=== PATIENT | female | born 1970 | race African-American/Black ===

== ENCOUNTER 2018-04-18 19:31 | Emergency (ER) | payer OTHER ==
[~2018-04-18] VITALS: Ht 172.7 cm; Wt 122.5 kg
[2018-04-18 20:17] LABS: BILIRUBIN,URINE NEGATIVE (NEG); CLARITY,URINE CLEAR; COLOR,URINE YELLOW; NITRITE,URINE NEGATIVE (NEG); PH,URINE 8.5; PROTEIN,URINE 100 mg/dL (NEG-TRACE)
[2018-04-18 20:23] LABS: BACTERIA,URINE MODERATE /HPF (0-FEW); RBC,URINE 0 /HPF (0-2); SQUAMOUS EPITHELIAL CELL,UR MOD /LPF; WBC,URINE OCC /HPF (0-4)
--- NOTE | 2018-04-18 20:43 | PHYS DOC ---
Past Medical History Past Medical History: Diverticulitis, Hypertension Additional Past Medical Histor: obesity Past Surgical History: Cholecystectomy Alcohol Use: None Drug Use: None Adult General Chief Complaint Chief Complaint: ABDOMINAL PAIN HPI HPI Patient is a 48 year old female with history of diverticulitis, hypertension, who presents today stating she received a call from the primary care doctor requesting her to come to the ED this evening to get a CT of the abdomen. Patient states she's had abdominal pain intermittently since of last week. She states she feels like she has to burp. She states she stopped at the doctor's office earlier today and they did labs as well as EKG and chest x-ray and was told that she needs to come to the ED for CT scan of the abdomen today. Patient denies any diarrhea. Denies any fever. Review of Systems Review of Systems Constitutional: Denies fever or chills [] Eyes: Denies change in visual acuity, redness, or eye pain [] HENT: Denies nasal congestion or sore throat [] Respiratory: Denies cough or shortness of breath [] Cardiovascular: No additional information not addressed in HPI [] GI: Reports abdominal pain, denies nausea, vomiting, bloody stools or diarrhea [ ] : Denies dysuria or hematuria [] Musculoskeletal: Denies back pain or joint pain [] Integument: Denies rash or skin lesions [] Neurologic: Denies headache, focal weakness or sensory changes [] All other systems were reviewed and found to be within normal limits, except as documented in this note. Current Medications Current Medications Current Medications Medications (Trade) Dose Ordered Sig/[facility] Start Time Stop Time Status Last Admin Dose Admin Ciprofloxacin/ Dextrose 200 ml @ 200 mls/hr 1X ONCE 04/18/18 23:00 04/18/18 23:59 04/18/18 23:13 200 MLS/HR Info (CONTRAST GIVEN -- Rx MONITORING) 1 each PRN DAILY PRN 04/18/18 22:00 04/20/18 21:59 Iohexol (Omnipaque 300 Mg/ml) 100 ml 1X ONCE 04/18/18 22:00 04/18/18 22:01 DC Metronidazole 100 ml @ 100 mls/hr 1X ONCE 04/18/18 23:00 04/18/18 23:59 04/18/18 23:13 100 MLS/HR Morphine Sulfate (Morphine Sulfate) 5 mg 1X ONCE 04/18/18 21:30 04/18/18 21:31 DC 04/18/18 21:26 5 MG Multi-Ingredient Mouthwash/Gargle (Gi Cocktail) 20 ml 1X ONCE 04/18/18 21:00 04/18/18 21:18 DC 04/18/18 21:24 20 ML Ondansetron HCl (Zofran) 4 mg 1X ONCE 04/18/18 21:00 04/18/18 21:18 DC 04/18/18 21:26 4 MG Pantoprazole Sodium (PROTONIX VIAL for IV PUSH) 40 mg 1X ONCE 04/18/18 21:00 04/18/18 21:18 DC 04/18/18 21:24 40 MG Sodium Chloride 1,000 ml @ 1,000 mls/hr 1X ONCE 04/18/18 21:00 04/18/18 21:59 DC 04/18/18 21:24 1,000 MLS/HR Allergies Allergies Allergies Coded Allergies Type Severity Reaction Last Updated Verified No Known Drug Allergies 04/18/18 No Physical Exam Physical Exam Constitutional: Well developed, well nourished, no acute distress, non-toxic appearance. [] HENT: Normocephalic, atraumatic, bilateral external ears normal, oropharynx moist, no oral exudates, nose normal. [] Eyes: PERRLA, EOMI, conjunctiva normal, no discharge. [] Neck: Normal range of motion, no tenderness, supple, no stridor. [] Cardiovascular:Heart rate regular rhythm, no murmur [] Lungs & Thorax: Bilateral breath sounds clear to auscultation [] Abdomen: Rounded abdomen. Bowel sounds normal, soft, no tenderness, no masses, no pulsatile masses. [] Skin: Warm, dry, no erythema, no rash. [] Back: No tenderness, no CVA tenderness. [] Extremities: No tenderness, no cyanosis, no clubbing, ROM intact, no edema. [] Neurologic: Alert and oriented X 3, normal motor function, normal sensory function, no focal deficits noted. [] Psychologic: Affect normal, judgement normal, mood normal. [] Current Patient Data Vital Signs Vital Signs Date Time Temp Pulse Resp B/P (MAP) Pulse Ox O2 Delivery O2 Flow Rate FiO2 04/18/18 21:26 16 98 Room Air 04/18/18 20:01 98.7 80 149/75 (99) 98.7 Lab Values Laboratory Tests Test 04/18/18 20:05 04/18/18 20:08 04/18/18 21:10 Urine Collection Type Unknown Urine Color Yellow Urine Clarity Clear Urine pH 8.5 Urine Specific [place] 1.025 Urine Protein 100 mg/dL (NEG-TRACE) Urine Glucose (UA) Negative mg/dL (NEG) Urine Ketones (Stick) Negative mg/dL (NEG) Urine Blood Negative (NEG) Urine Nitrite Negative (NEG) Urine Bilirubin Negative (NEG) Urine Urobilinogen Dipstick 1.0 mg/dL (0.2 mg/dL) Urine Leukocyte Esterase Trace (NEG) Urine RBC 0 /HPF (0-2) Urine WBC Occ /HPF (0-4) Urine Squamous Epithelial Cells Mod /LPF Urine Bacteria Moderate /HPF (0-FEW) Urine Mucus Mod /LPF Urine Opiates Screen Neg (NEG) Urine Methadone Screen Neg (NEG) Urine Barbiturates Neg (NEG) Urine Phencyclidine Screen Neg (NEG) Urine Amphetamine/Methamphetamine Neg (NEG) Urine Benzodiazepines Screen Neg (NEG) Urine Cocaine Screen Neg (NEG) Urine Cannabinoids Screen Pos (NEG) Urine Ethyl Alcohol Neg (NEG) POC Urine HCG, Qualitative Hcg negative (Negative) White Blood Count 12.6 x10^3/uL (4.0-11.0) H Red Blood Count 4.42 x10^6/uL (3.50-5.40) Hemoglobin 11.6 g/dL (12.0-15.5) L Hematocrit 36.3 % (36.0-47.0) Mean Corpuscular Volume 82 fL (79-100) Mean Corpuscular Hemoglobin 26 pg (25-35) Mean Corpuscular Hemoglobin Concent 32 g/dL (31-37) Red Cell Distribution Width 15.2 % (11.5-14.5) H Platelet Count 264 x10^3/uL (140-400) Neutrophils (%) (Auto) 46 % (31-73) Lymphocytes (%) (Auto) 45 % (24-48) Monocytes (%) (Auto) 7 % (0-9) Eosinophils (%) (Auto) 1 % (0-3) Basophils (%) (Auto) 1 % (0-3) Neutrophils # (Auto) 5.8 x10^3uL (1.8-7.7) Lymphocytes # (Auto) 5.6 x10^3/uL (1.0-4.8) H Monocytes # (Auto) 0.9 x10^3/uL (0.0-1.1) Eosinophils # (Auto) 0.1 x10^3/uL (0.0-0.7) Basophils # (Auto) 0.1 x10^3/uL (0.0-0.2) Sodium Level 142 mmol/L (136-145) Potassium Level 3.6 mmol/L (3.5-5.1) Chloride Level 105 mmol/L (98-107) Carbon Dioxide Level 31 mmol/L (21-32) Anion Gap 6 (6-14) Blood Urea Nitrogen 13 mg/dL (7-20) Creatinine 1.2 mg/dL (0.6-1.0) H Estimated GFR (Cockcroft-Gault) 57.8 BUN/Creatinine Ratio 11 (6-20) Glucose Level 106 mg/dL (70-99) H Calcium Level 8.4 mg/dL (8.5-10.1) L Total Bilirubin 0.3 mg/dL (0.2-1.0) Aspartate Amino Transferase (AST) 19 U/L (15-37) Alanine Aminotransferase (ALT) 19 U/L (14-59) Alkaline Phosphatase 131 U/L (46-116) H Total Protein 7.1 g/dL (6.4-8.2) Albumin 2.8 g/dL (3.4-5.0) L Albumin/Globulin Ratio 0.7 (1.0-1.7) L Lipase 179 U/L (73-393) Ethyl Alcohol Level < 10 mg/dL (0-10) Laboratory Tests 04/18/18 21:10 Laboratory Tests 04/18/18 21:10 EKG EKG [] Radiology/Procedures Radiology/Procedures []PROCEDURE: CT ABD PELV W/ IV CONTRST ONLY CT scan of the abdomen and pelvis with contrast 04/18/2018 CLINICAL HISTORY: Left lower quadrant abdominal pain. TECHNIQUE: After the intravenous administration of 75 cc of Omnipaque 300 only, contiguous, 5 mm axial sections were obtained through the abdomen and pelvis. One or more of the following individualized dose reduction techniques were utilized for this study: 1. Automated exposure control. 2. Adjustment of the mA and/or kV according to patient size. 3. Use of iterative reconstruction technique. FINDINGS: Images through the lung bases demonstrate minimal dependent subsegmental atelectasis bilaterally. The liver, spleen, pancreas, adrenal glands and kidneys are within normal limits. The abdominal aorta tapers normally. Surgical clips are seen within the gallbladder fossa consistent with a cholecystectomy. No free fluid or free air is seen within the abdomen. There is no evidence of bowel obstruction. The appendix is well-visualized and is within normal limits. Images through the pelvis demonstrate the urinary bladder distended with urine. An IUD is seen within the expected location of the endometrial canal of the uterus. Multiple diverticula are seen involving the sigmoid colon. Focal wall thickening of the mid sigmoid colon is seen. Increased density seen within the adjacent fat. These findings are consistent with diverticulitis. No abnormal fluid collection is seen suggest evidence of an abscess. Minimal S-shaped curvature of the thoracolumbar spine is seen. Degenerative changes are seen involving lower thoracic and lower lumbar spine and both hips. IMPRESSION: Findings are seen consistent with sigmoid diverticulitis. No abscess is seen. Electronically signed by: Milo Arzola MD (04/18/2018 10:20 PM) [facility] DICTATED and SIGNED BY: MILO ARZOLA MD DATE: 04/18/182215 Course & Med Decision Making Course & Med Decision Making Pertinent Labs and Imaging studies reviewed. (See chart for details) This is a 48-year-old female patient presenting to the ED today stating she was sent to the ED by the PCP to get a CAT scan of her abdomen. She's had abdominal pain since . CBC with a WBC of 12.6, CMP with no acute findings. Urine analysis is negative for infection. CT of the abdomen and pelvic was noted for diverticulitis. No abscess. Offered patient admission. Patient states she has to go home and take care of the mother who has bone cancer. She was given prescription for Cipro, Flagyl, [place] for pain and Zofran. 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 She was provided return precautions and discharged in stable condition. Dragon Disclaimer Dragon Disclaimer This electronic medical record was generated, in whole or in part, using a voice recognition dictation system. Departure Departure Impression: Primary Impression: Diverticulitis Disposition: 01 HOME, SELF-CARE Condition: STABLE Referrals: UNKNOWN PCP NAME (PCP) KELLY ORONA MD Follow-up with your doctor or the provided doctor in 3-7 days Patient Instructions: Diverticulitis, [id number] Additional Instructions: You were evaluated in the emergency room for abdominal pain and noted to have diverticulitis. We put you on antibiotics, ensure you complete them. Follow-up with your own doctor or the provided pulp refiner operator in the next 3-7 days. Come back to the emergency room at any point symptoms worsen Scripts Ondansetron (ZOFRAN ODT) 4 Mg Tab.rapdis 1 TAB SL Q8HRS, #15 TAB Prov: MICHAEL DOMINGO APRN 04/18/18 Hydrocodone/Apap 5-325 (NORCO 5-325 TABLET) 1 Each Tablet 1 TAB PO Q6HRS, #12 TAB Prov: MICHAEL DOMINGO APRN 18 Metronidazole (FLAGYL) 500 Mg Tablet 500 MG PO TID, #30 TAB Prov: MICHAEL DOMINGO APRN 18 Ciprofloxacin Hcl (CIPRO) 500 Mg Tablet 1 TAB PO BID, #20 TAB Prov: MICHAEL DOMINGO APRN 04/18/18 MICHAEL DOMINGO APRN Apr 18, 2018 20:43
[2018-04-18] MEDS ORDERED: IV NORMAL SALINE 1000ML BAG 1,000 ML IV ONE (21:00)
[2018-04-18] MEDS ORDERED: LIDO:MAALOX 1:1 20 ML SINGLE DOSE. SWSW ONE (21:00)
[2018-04-18] MEDS ORDERED: ONDANSETRON PF 4 MG/2 ML VIAL. IV ONE (21:00)
[2018-04-18] MEDS ORDERED: PANTOPRAZOLE IV PUSH 40 MG VIAL. IVP ONE (21:00)
[2018-04-18 21:22] LABS: BASO # 0.1 x10^3/uL (0.0-0.2); BASO % 1 % (0-3); EOS # 0.1 x10^3/uL (0.0-0.7); EOS % 1 % (0-3); HEMATOCRIT 36.3 % (36.0-47.0); HEMOGLOBIN 11.6 g/dL (12.0-15.5); LYMPH # 5.6 x10^3/uL (1.0-4.8); LYMPH % 45 % (24-48); MEAN CORPUSCULAR HEMOGLOBIN 26 pg (25-35); MEAN CORPUSCULAR HGB CONC 32 g/dL (31-37); MEAN CORPUSCULAR VOLUME 82 fL (79-100); MONO # 0.9 x10^3/uL (0.0-1.1); MONO % 7 % (0-9); NEUT # 5.8 x10^3uL (1.8-7.7); NEUT % 46 % (31-73); PLATELET COUNT 264 x10^3/uL (140-400); RED BLOOD COUNT 4.42 x10^6/uL (3.50-5.40); RED CELL DISTRIBUTION WIDTH 15.2 % (11.5-14.5); WHITE BLOOD COUNT 12.6 x10^3/uL (4.0-11.0)
[2018-04-18] MEDS ORDERED: MORPHINE SULFATE 10 MG/ML VIAL. IV ONE (21:30)
[2018-04-18 21:33] LABS: CALCIUM 8.4 mg/dL (8.5-10.1); CREATININE 1.2 mg/dL (0.6-1.0); GFR 57.8; POTASSIUM 3.6 mmol/L (3.5-5.1)
[2018-04-18 21:35] LABS: BARBITURATES NEG (NEG); BENZODIAZEPINES NEG (NEG); CANNABINOIDS POS (NEG); COCAINE NEG (NEG); METHADONE NEG (NEG); OPIATES NEG (NEG); PHENCYCLIDINE NEG (NEG)
[2018-04-18 21:36] LABS: AMPHETAMINE/METHAMPHETAMINE NEG (NEG)
[2018-04-18 21:40] LABS: ALBUMIN 2.8 g/dL (3.4-5.0); ALBUMIN/GLOBULIN RATIO 0.7 (1.0-1.7); TOTAL BILIRUBIN 0.3 mg/dL (0.2-1.0); TOTAL PROTEIN 7.1 g/dL (6.4-8.2)
[2018-04-18] MEDS ORDERED: CONTRAST GIVEN. MC PRN (22:00)
[2018-04-18] MEDS ORDERED: IOHEXOL 300 MG/ML 100ML VIAL. IV ONE (22:00)
--- NOTE | 2018-04-18 22:24 | RAD ---
CT scan of the abdomen and pelvis with contrast 04/18/2018 CLINICAL HISTORY: Left lower quadrant abdominal pain. TECHNIQUE: After the intravenous administration of 75 cc of Omnipaque 300 only, contiguous, 5 mm axial sections were obtained through the abdomen and pelvis. One or more of the following individualized dose reduction techniques were utilized for this study: 1. Automated exposure control. 2. Adjustment of the mA and/or kV according to patient size. 3. Use of iterative reconstruction technique. FINDINGS: Images through the lung bases demonstrate minimal dependent subsegmental atelectasis bilaterally. The liver, spleen, pancreas, adrenal glands and kidneys are within normal limits. The abdominal aorta tapers normally. Surgical clips are seen within the gallbladder fossa consistent with a cholecystectomy. No free fluid or free air is seen within the abdomen. There is no evidence of bowel obstruction. The appendix is well-visualized and is within normal limits. Images through the pelvis demonstrate the urinary bladder distended with urine. An IUD is seen within the expected location of the endometrial canal of the uterus. Multiple diverticula are seen involving the sigmoid colon. Focal wall thickening of the mid sigmoid colon is seen. Increased density seen within the adjacent fat. These findings are consistent with diverticulitis. No abnormal fluid collection is seen suggest evidence of an abscess. Minimal S-shaped curvature of the thoracolumbar spine is seen. Degenerative changes are seen involving lower thoracic and lower lumbar spine and both hips. IMPRESSION: Findings are seen consistent with sigmoid diverticulitis. No abscess is seen. Electronically signed by: Milo Cornell MD (04/18/2018 10:20 PM) [facility]
[2018-04-18] MEDS ORDERED: CIPROFLOXACIN 400MG PREMIX 200 ML IV ONE (23:00)
[2018-04-18] MEDS ORDERED: ONDA4TAB10 SL (23:19)
[2018-04-18] MEDS ORDERED: CIPR500T94 PO (23:19)
[2018-04-18] MEDS ORDERED: METR500T PO (23:19)
[2018-04-18] MEDS ORDERED: HYDR-971 PO (23:19)
[2018-04-19 00:03] VITALS: BP 160/90
[2018-04-19] MEDS ORDERED: MORPHINE SULFATE 10 MG/ML VIAL. IV ONE (00:30)
== END 2018-04-19 00:32 | disposition home or self-care (01) ==
LOC: ER 19:31
DX: K57.92 Diverticulitis of intestine, part unspecified, without perforation or abscess without bleeding (principal); I10 Essential (primary) hypertension; Z90.49 Acquired absence of other specified parts of digestive tract
CPT/HCPCS: 36415; 74177; 80053; 80307; 81001; 81025; 83690; 85025; 87086; 96365; 96368; 96375; 96376; 99285; C9113; G0480; J0744; J2270; J2405; J3490; J7030; Q9967; G0479

== ENCOUNTER 2018-04-29 17:19 | Inpatient (IN) | payer OTHER ==
[~2018-04-29] VITALS: Ht 172.7 cm; Wt 121.1 kg
[~2018-04-29 17:19] MED LIST: CIPR500T94 PO; HYDR-971 PO; METR500T PO; ONDA4TAB10 SL
[2018-04-29] MEDS ORDERED: CONTRAST GIVEN. MC PRN (17:45)
[2018-04-29] MEDS ORDERED: fentaNYL PF VIAL 100 MCG/2 ML VIAL IV ONE (18:00)
[2018-04-29] MEDS ORDERED: IV NORMAL SALINE 1000ML BAG 1,000 ML IV ONE (18:00)
[2018-04-29] MEDS ORDERED: ONDANSETRON PF 4 MG/2 ML VIAL. IV ONE (18:00)
[2018-04-29] MEDS ORDERED: IOHEXOL 300 MG/ML 100ML VIAL. IV ONE (18:00)
[2018-04-29 18:48] LABS: BASO # 0.1 x10^3/uL (0.0-0.2); BASO % 1 % (0-3); EOS # 0.1 x10^3/uL (0.0-0.7); EOS % 0 % (0-3); HEMATOCRIT 37.6 % (36.0-47.0); HEMOGLOBIN 12.2 g/dL (12.0-15.5); LYMPH # 4.2 x10^3/uL (1.0-4.8); LYMPH % 31 % (24-48); MEAN CORPUSCULAR HEMOGLOBIN 26 pg (25-35); MEAN CORPUSCULAR HGB CONC 32 g/dL (31-37); MEAN CORPUSCULAR VOLUME 82 fL (79-100); MONO % 8 % (0-9); NEUT # 8.2 x10^3uL (1.8-7.7); NEUT % 60 % (31-73); PLATELET COUNT 301 x10^3/uL (140-400); RED BLOOD COUNT 4.61 x10^6/uL (3.50-5.40); RED CELL DISTRIBUTION WIDTH 15.5 % (11.5-14.5); WHITE BLOOD COUNT 13.6 x10^3/uL (4.0-11.0)
[2018-04-29 18:59] LABS: CALCIUM 9.2 mg/dL (8.5-10.1); CREATININE 1.4 mg/dL (0.6-1.0); GFR 48.4; POTASSIUM 3.2 mmol/L (3.5-5.1)
[2018-04-29 19:06] LABS: ALBUMIN 3.1 g/dL (3.4-5.0); ALBUMIN/GLOBULIN RATIO 0.7 (1.0-1.7); TOTAL BILIRUBIN 0.3 mg/dL (0.2-1.0); TOTAL PROTEIN 7.8 g/dL (6.4-8.2)
--- NOTE | 2018-04-29 20:28 | RAD ---
CT SCAN OF THE ABDOMEN AND PELVIS WITH IV CONTRAST. History: Left lower quadrant pain and recent diverticulitis Comparison:None. Procedure: Contiguous axial images of the abdomen and pelvis were performed after the administration of 60 cc of Omni 300 IV contrast and without oral contrast. CT Abdomen with contrast: Findings: Liver: Unremarkable Spleen: Unremarkable Pancreas: Unremarkable Adrenal Glands: Unremarkable Kidneys: Unremarkable There is no mass or lymphadenopathy. There is no free air. There is no free fluid. There has been prior cholecystectomy. Impression: No acute findings. End Impression CT Pelvis with Contrast: Findings: The urinary bladder is collapsed and not well evaluated. There is inflammation around the proximal sigmoid colon mild diverticulosis. The appendix is normal. There is 90 which appears appropriately seated in the uterus. There is no free fluid. There is no lymphadenopathy. Impression: Findings suggest mild diverticulitis. PQRS Compliance Statement: One or more of the following individualized dose reduction techniques were utilized for this examination: 1. Automated exposure control 2. Adjustment of the mA and/or kV according to patient size 3. Use of iterative reconstruction technique Electronically signed by: John Phipps III, MD (04/29/2018 8:24 PM) [facility]
[2018-04-29] MEDS ORDERED: MORPHINE SULFATE 4 MG/ML VIAL. IV ONE (20:30)
--- NOTE | 2018-04-29 21:09 | PHYS DOC ---
Past Medical History Past Medical History: Diverticulitis, Hypertension Additional Past Medical Histor: obesity Past Surgical History: Cholecystectomy Alcohol Use: None Drug Use: None Adult General Chief Complaint Chief Complaint: ABDOMINAL PAIN HPI HPI Patient is a 48 year old female who presents with left lower quadrant pain. Patient reports she was here on April 18 and diagnosed with sigmoid diverticulitis. She did 10 days worth of Cipro and Flagyl. She reports she felt better initially, then started feeling worse about 2-3 days ago. She denies any nausea or vomiting. She has had chills. Review of Systems Review of Systems Constitutional: Chills Respiratory: Denies cough or shortness of breath [] Cardiovascular: No chest pain GI: Reports left lower quadrant abdominal pain. denies nausea, vomiting, bloody stools or diarrhea [] Integument: Denies rash or skin lesions [] Neurologic: Denies headache, focal weakness or sensory changes [] All other systems were reviewed and found to be within normal limits, except as documented in this note. Current Medications Current Medications Current Medications Medications (Trade) Dose Ordered Sig/Debi Start Time Stop Time Status Last Admin Dose Admin Fentanyl Citrate (Fentanyl 2ml Vial) 50 mcg 1X ONCE 04/29/18 18:00 04/29/18 18:01 DC 04/29/18 18:05 50 MCG Info (CONTRAST GIVEN -- Rx MONITORING) 1 each PRN DAILY PRN 04/29/18 17:45 05/01/18 17:44 Iohexol (Omnipaque 300 Mg/ml) 75 ml 1X ONCE 04/29/18 18:00 04/29/18 18:01 DC 04/29/18 19:50 75 ML Morphine Sulfate (Morphine Sulfate) 4 mg 1X ONCE 04/29/18 20:30 04/29/18 20:31 DC 04/29/18 20:39 4 MG Ondansetron HCl (Zofran) 4 mg 1X ONCE 04/29/18 18:00 04/29/18 18:01 DC 04/29/18 18:05 4 MG Sodium Chloride 1,000 ml @ 1,000 mls/hr 1X ONCE 04/29/18 18:00 04/29/18 18:59 DC 04/29/18 18:05 1,000 MLS/HR Allergies Allergies Allergies Coded Allergies Type Severity Reaction Last Updated Verified No Known Drug Allergies 04/18/18 No Physical Exam Physical Exam Constitutional: Well developed, well nourished, no acute distress, non-toxic appearance. [] HENT: Normocephalic, atraumatic Eyes: PERRLA, EOMI, conjunctiva normal, no discharge. [] Neck: Normal range of motion, no tenderness, supple, no stridor. [] Cardiovascular:Heart rate regular rhythm, no murmur [] Lungs & Thorax: Bilateral breath sounds clear to auscultation [] Abdomen: Bowel sounds normal, soft, left lower quadrant tenderness Skin: Warm, dry, no erythema, no rash. [] Neurologic: Alert and oriented X 3, normal motor function, normal sensory function, no focal deficits noted. [] Psychologic: Affect normal, judgement normal, mood normal. [] Current Patient Data Vital Signs Vital Signs Date Time Temp Pulse Resp B/P (MAP) Pulse Ox O2 Delivery O2 Flow Rate FiO2 04/29/18 20:39 16 98 Room Air 04/29/18 20:30 72 124/57 (79) 04/29/18 17:20 98.2 98.2 Lab Values Laboratory Tests Test 04/29/18 18:20 White Blood Count 13.6 x10^3/uL (4.0-11.0) H Red Blood Count 4.61 x10^6/uL (3.50-5.40) Hemoglobin 12.2 g/dL (12.0-15.5) Hematocrit 37.6 % (36.0-47.0) Mean Corpuscular Volume 82 fL (79-100) Mean Corpuscular Hemoglobin 26 pg (25-35) Mean Corpuscular Hemoglobin Concent 32 g/dL (31-37) Red Cell Distribution Width 15.5 % (11.5-14.5) H Platelet Count 301 x10^3/uL (140-400) Neutrophils (%) (Auto) 60 % (31-73) Lymphocytes (%) (Auto) 31 % (24-48) Monocytes (%) (Auto) 8 % (0-9) Eosinophils (%) (Auto) 0 % (0-3) Basophils (%) (Auto) 1 % (0-3) Neutrophils # (Auto) 8.2 x10^3uL (1.8-7.7) H Lymphocytes # (Auto) 4.2 x10^3/uL (1.0-4.8) Monocytes # (Auto) 1.0 x10^3/uL (0.0-1.1) Eosinophils # (Auto) 0.1 x10^3/uL (0.0-0.7) Basophils # (Auto) 0.1 x10^3/uL (0.0-0.2) Sodium Level 138 mmol/L (136-145) Potassium Level 3.2 mmol/L (3.5-5.1) L Chloride Level 101 mmol/L (98-107) Carbon Dioxide Level 30 mmol/L (21-32) Anion Gap 7 (6-14) Blood Urea Nitrogen 13 mg/dL (7-20) Creatinine 1.4 mg/dL (0.6-1.0) H Estimated GFR (Cockcroft-Gault) 48.4 BUN/Creatinine Ratio 9 (6-20) Glucose Level 103 mg/dL (70-99) H Calcium Level 9.2 mg/dL (8.5-10.1) Total Bilirubin 0.3 mg/dL (0.2-1.0) Aspartate Amino Transferase (AST) 15 U/L (15-37) Alanine Aminotransferase (ALT) 17 U/L (14-59) Alkaline Phosphatase 119 U/L (46-116) H Total Protein 7.8 g/dL (6.4-8.2) Albumin 3.1 g/dL (3.4-5.0) L Albumin/Globulin Ratio 0.7 (1.0-1.7) L Laboratory Tests 04/29/18 18:20 Laboratory Tests 04/29/18 18:20 EKG EKG [] Radiology/Procedures Radiology/Procedures [] Course & Med Decision Making Course & Med Decision Making Pertinent Labs and Imaging studies reviewed. (See chart for details) Discussed with Dr. Carmona, accepts patient for admission Plan: Admit Dragon Disclaimer Dragon Disclaimer This electronic medical record was generated, in whole or in part, using a voice recognition dictation system. Departure Departure Impression: Primary Impression: Diverticulitis Additional Impression: Failure of outpatient treatment Disposition: HOME, SELF-CARE Admitting Physician: Tiffany Carmona Condition: STABLE Referrals: UNKNOWN PCP NAME (PCP) Problem Qualifiers STANLEY VENTURA [employer] ASSIST[employer] Apr 29, 2018 21:09
[2018-04-29] MEDS ORDERED: PIP/TAZO PER PHARMACY MC PRN (21:15)
[2018-04-29] MEDS ORDERED: ONDANSETRON PF 4 MG/2 ML VIAL. IV PRN (21:15)
[2018-04-29] MEDS: PIPERACILLIN/TAZOBACTAM 3.375 GM in IV NORMAL SALINE 50ML 50 ML IV SCH (21:38)
[2018-04-29] MEDS: MORPHINE SULFATE 2 MG/ML VIAL. IV PRN (23:30)
[2018-04-29 23:45] VITALS: BP 136/55
[2018-04-30] MEDS ORDERED: LISI1TAB3 PO (01:08)
[2018-04-30] MEDS ORDERED: ONDA4TAB7 PO (01:08)
[2018-04-30] MEDS: MORPHINE SULFATE 2 MG/ML VIAL. IV PRN ×5 (01:40→20:31)
[2018-04-30 03:58] VITALS: BP 105/53
[2018-04-30] MEDS: PIPERACILLIN/TAZOBACTAM 3.375 GM in IV NORMAL SALINE 50ML 50 ML IV SCH ×4 (06:28→23:25)
[2018-04-30 07:50] VITALS: BP 105/65
--- NOTE | 2018-04-30 09:18 | PDOC1 ---
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 Patient reports she was here on April 18 and diagnosed with sigmoid diverticulitis. She did 10 days worth of Cipro and Flagyl. She reports she felt better initially, then started feeling worse about 2-3 days ago. She denies any nausea or vomiting. She has had chills. Review of Systems Past Medical History Cardiovascular: HTN GI: Diverticulosis, Other (diverticulitis) Psych: Anxiety Rheumatologic: Other (DJD) Endocrine: Other (obesity) Past Surgical History Past Surgical History: Cholecystectomy Family History Family History: Hypertension Social History Smoke: No ALCOHOL: rare Drugs: None Current Problem List Problem List Problems Medical Problems: (1) Diverticulitis Status: Acute (2) Failure of outpatient treatment Status: Acute Current Medications Current Medications Current Medications Medications (Trade) Dose Ordered Sig/Debi Start Time Stop Time Status Last Admin Dose Admin Fentanyl Citrate (Fentanyl 2ml Vial) 50 mcg 1X ONCE 04/29/18 18:00 04/29/18 18:01 DC 04/29/18 18:05 50 MCG Info (CONTRAST GIVEN -- Rx MONITORING) 1 each PRN DAILY PRN 04/29/18 17:45 05/01/18 17:44 Iohexol (Omnipaque 300 Mg/ml) 75 ml 1X ONCE 04/29/18 18:00 04/29/18 18:01 DC 04/29/18 19:50 75 ML Morphine Sulfate (Morphine Sulfate) 2 mg PRN Q2HR PRN 04/29/18 21:15 04/30/18 21:14 04/30/18 07:33 2 MG Ondansetron HCl (Zofran) 4 mg PRN Q8HRS PRN 04/29/18 21:15 04/30/18 21:14 Piperacillin Sod/ Tazobactam Sod (Zosyn Per Pharmacy) 1 each QID PRN 04/29/18 21:15 Piperacillin Sod/ Tazobactam Sod 3.375 gm/Sodium Chloride 50 ml @ 100 mls/hr Q6HRS 04/29/18 22:00 04/30/18 06:28 100 MLS/HR Sodium Chloride 1,000 ml @ 1,000 mls/hr 1X ONCE 04/29/18 18:00 04/29/18 18:59 DC 04/29/18 18:05 1,000 MLS/HR Allergies Allergies Allergies Coded Allergies Type Severity Reaction Last Updated Verified No Known Drug Allergies 04/18/18 No ROS Review of System CONSTITUTIONAL: No fever or chills EYES: No recent changes SKIN: No rash or itching CARDIOVASCULAR: No chest pain, syncope, palpitations, or edema RESPIRATORY: No SOB or cough GASTROINTESTINAL: No nausea, vomiting + abdominal pain NEUROLOGICAL: No headaches or weakness ENDOCRINE: No cold or heat intolerance GENITOURINARY: No urgency or frequency of urination MUSCULOSKELETAL: + back pain No joint pain LYMPHATICS: No enlarged lymph nodes PSYCHIATRIC: +anxiety no depression Physical Exam Physical Exam GEN.: No apparent distress. Alert and oriented. HEENT: Head is normocephalic, atraumatic NECK: Supple. LUNGS: Clear to auscultation. HEART: RRR, S1, S2 present. Peripheral pulses intact ABDOMEN: Soft, tender LLQ area with volunteer guarding. Positive bowel sounds. EXTREMITIES: Without any cyanosis. NEUROLOGIC: Normal speech, normal tone PSYCHIATRIC: Normal affect, normal mood. SKIN: No ulcerations Vitals Vitals Vital Signs Date Time Temp Pulse Resp B/P (MAP) Pulse Ox O2 Delivery O2 Flow Rate FiO2 04/30/18 08:00 Room Air 04/30/18 07:50 98.1 63 18 105/65 (78) 99 98.1 Labs Labs Laboratory Tests Test 04/29/18 18:20 White Blood Count 13.6 x10^3/uL (4.0-11.0) Red Blood Count 4.61 x10^6/uL (3.50-5.40) Hemoglobin 12.2 g/dL (12.0-15.5) Hematocrit 37.6 % (36.0-47.0) Mean Corpuscular Volume 82 fL (79-100) Mean Corpuscular Hemoglobin 26 pg (25-35) Mean Corpuscular Hemoglobin Concent 32 g/dL (31-37) Red Cell Distribution Width 15.5 % (11.5-14.5) Platelet Count 301 x10^3/uL (140-400) Neutrophils (%) (Auto) 60 % (31-73) Lymphocytes (%) (Auto) 31 % (24-48) Monocytes (%) (Auto) 8 % (0-9) Eosinophils (%) (Auto) 0 % (0-3) Basophils (%) (Auto) 1 % (0-3) Neutrophils # (Auto) 8.2 x10^3uL (1.8-7.7) Lymphocytes # (Auto) 4.2 x10^3/uL (1.0-4.8) Monocytes # (Auto) 1.0 x10^3/uL (0.0-1.1) Eosinophils # (Auto) 0.1 x10^3/uL (0.0-0.7) Basophils # (Auto) 0.1 x10^3/uL (0.0-0.2) Sodium Level 138 mmol/L (136-145) Potassium Level 3.2 mmol/L (3.5-5.1) Chloride Level 101 mmol/L (98-107) Carbon Dioxide Level 30 mmol/L (21-32) Anion Gap 7 (6-14) Blood Urea Nitrogen 13 mg/dL (7-20) Creatinine 1.4 mg/dL (0.6-1.0) Estimated GFR (Cockcroft-Gault) 48.4 BUN/Creatinine Ratio 9 (6-20) Glucose Level 103 mg/dL (70-99) Calcium Level 9.2 mg/dL (8.5-10.1) Total Bilirubin 0.3 mg/dL (0.2-1.0) Aspartate Amino Transf (AST/SGOT) 15 U/L (15-37) Alanine Aminotransferase (ALT/SGPT) 17 U/L (14-59) Alkaline Phosphatase 119 U/L (46-116) Total Protein 7.8 g/dL (6.4-8.2) Albumin 3.1 g/dL (3.4-5.0) Albumin/Globulin Ratio 0.7 (1.0-1.7) Laboratory Tests Test 04/29/18 18:20 White Blood Count 13.6 x10^3/uL (4.0-11.0) Red Blood Count 4.61 x10^6/uL (3.50-5.40) Hemoglobin 12.2 g/dL (12.0-15.5) Hematocrit 37.6 % (36.0-47.0) Mean Corpuscular Volume 82 fL (79-100) Mean Corpuscular Hemoglobin 26 pg (25-35) Mean Corpuscular Hemoglobin Concent 32 g/dL (31-37) Red Cell Distribution Width 15.5 % (11.5-14.5) Platelet Count 301 x10^3/uL (140-400) Neutrophils (%) (Auto) 60 % (31-73) Lymphocytes (%) (Auto) 31 % (24-48) Monocytes (%) (Auto) 8 % (0-9) Eosinophils (%) (Auto) 0 % (0-3) Basophils (%) (Auto) 1 % (0-3) Neutrophils # (Auto) 8.2 x10^3uL (1.8-7.7) Lymphocytes # (Auto) 4.2 x10^3/uL (1.0-4.8) Monocytes # (Auto) 1.0 x10^3/uL (0.0-1.1) Eosinophils # (Auto) 0.1 x10^3/uL (0.0-0.7) Basophils # (Auto) 0.1 x10^3/uL (0.0-0.2) Sodium Level 138 mmol/L (136-145) Potassium Level 3.2 mmol/L (3.5-5.1) Chloride Level 101 mmol/L (98-107) Carbon Dioxide Level 30 mmol/L (21-32) Anion Gap 7 (6-14) Blood Urea Nitrogen 13 mg/dL (7-20) Creatinine 1.4 mg/dL (0.6-1.0) Estimated GFR (Cockcroft-Gault) 48.4 BUN/Creatinine Ratio 9 (6-20) Glucose Level 103 mg/dL (70-99) Calcium Level 9.2 mg/dL (8.5-10.1) Total Bilirubin 0.3 mg/dL (0.2-1.0) Aspartate Amino Transf (AST/SGOT) 15 U/L (15-37) Alanine Aminotransferase (ALT/SGPT) 17 U/L (14-59) Alkaline Phosphatase 119 U/L (46-116) Total Protein 7.8 g/dL (6.4-8.2) Albumin 3.1 g/dL (3.4-5.0) Albumin/Globulin Ratio 0.7 (1.0-1.7) VTE Prophylaxis Ordered VTE Prophylaxis Devices: Yes VTE Pharmacological Prophylaxi: No Assessment/Plan Assessment/Plan 1-Diverticulitis failed out pt treatment with cipro and flagyl 2-GERD 3-HTN 4-anxiety admitted started Zosyn IV and pain control ALLY BURDICK MD Apr 30, 2018 09:18
[2018-04-30 11:21] VITALS: BP 135/81
--- NOTE | 2018-04-30 12:23 | PDOC2 ---
CONSULT Date of Consult Date of Consult DATE: 04/30/18 TIME: 12:20 Reason for Consult Reason for Consult: LLQ abd pain/hx diverticulitis Current Problem List Problem List Problems Medical Problems: (1) Diverticulitis Status: Acute (2) Failure of outpatient treatment Status: Acute Current Medications Current Medications Current Medications Fentanyl Citrate (Fentanyl 2ml Vial) 50 mcg 1X ONCE IV Last administered on at 18:05; Start 04/29/18 at 18:00; Stop 04/29/18 at 18:01; Status DC Sodium Chloride 1,000 ml @ 1,000 mls/hr 1X ONCE IV Last administered on at 18:05; Start 04/29/18 at 18:00; Stop 04/29/18 at 18:59; Status DC Ondansetron HCl (Zofran) 4 mg 1X ONCE IV Last administered on 04/29/18at 18:05 ; Start 04/29/18 at 18:00; Stop 04/29/18 at 18:01; Status DC Iohexol (Omnipaque 300 Mg/ml) 75 ml 1X ONCE IV Last administered on 04/29/18at 19:50; Start 04/29/18 at 18:00; Stop 04/29/18 at 18:01; Status DC Info (CONTRAST GIVEN -- Rx MONITORING) 1 each PRN DAILY PRN MC SEE COMMENTS; Start 04/29/18 at 17:45; Stop 05/01/18 at 17:44 Morphine Sulfate (Morphine Sulfate) 4 mg 1X ONCE IV Last administered on at 20:39; Start 04/29/18 at 20:30; Stop 04/29/18 at 20:31; Status DC Ondansetron HCl (Zofran) 4 mg PRN Q8HRS PRN IV NAUSEA/VOMITING; Start 04/29/18 at 21:15; Stop 04/30/18 at 21:14 Morphine Sulfate (Morphine Sulfate) 2 mg PRN Q2HR PRN IV PAIN Last administered on 04/30/18at 11:23; Start 04/29/18 at 21:15; Stop 04/30/18 at 21:14 Piperacillin Sod/ Tazobactam Sod (Zosyn Per Pharmacy) 1 each QID PRN MC SEE COMMENTS; Start 04/29/18 at 21:15 Piperacillin Sod/ Tazobactam Sod 3.375 gm/Sodium Chloride 50 ml @ 100 mls/hr Q6HRS IV Last administered on 04/30/18at 11:23; Start 04/29/18 at 22:00 Active Scripts Active Zofran Odt (Ondansetron) 4 Mg Tab.rapdis 1 Tab SL Q8HRS [place] 5-325 Tablet (Acetaminophen/Hydrocodone Bitart) 1 Each Tablet 1 Tab PO Q6HRS Flagyl (Metronidazole) 500 Mg Tablet 500 Mg PO TID Cipro (Ciprofloxacin Hcl) 500 Mg Tablet 1 Tab PO BID Reported Zofran (Ondansetron Hcl) 4 Mg Tablet 1 Tab PO Q8HRS Lisinopril-Hctz 10-12.5 Mg Tab (Lisinopril/Hydrochlorothiazide) 1 Each Tablet 1 Tab PO DAILY Allergies Allergies: Coded Allergies: No Known Drug Allergies (Unverified , 04/18/18) Vitals VITALS Vital Signs Date Time Temp Pulse Resp B/P (MAP) Pulse Ox O2 Delivery O2 Flow Rate FiO2 04/30/18 11:21 97.8 63 18 135/81 (99) 93 Room Air 97.8 Labs Labs Laboratory Tests Test 04/29/18 18:20 White Blood Count 13.6 x10^3/uL (4.0-11.0) Red Blood Count 4.61 x10^6/uL (3.50-5.40) Hemoglobin 12.2 g/dL (12.0-15.5) Hematocrit 37.6 % (36.0-47.0) Mean Corpuscular Volume 82 fL (79-100) Mean Corpuscular Hemoglobin 26 pg (25-35) Mean Corpuscular Hemoglobin Concent 32 g/dL (31-37) Red Cell Distribution Width 15.5 % (11.5-14.5) Platelet Count 301 x10^3/uL (140-400) Neutrophils (%) (Auto) 60 % (31-73) Lymphocytes (%) (Auto) 31 % (24-48) Monocytes (%) (Auto) 8 % (0-9) Eosinophils (%) (Auto) 0 % (0-3) Basophils (%) (Auto) 1 % (0-3) Neutrophils # (Auto) 8.2 x10^3uL (1.8-7.7) Lymphocytes # (Auto) 4.2 x10^3/uL (1.0-4.8) Monocytes # (Auto) 1.0 x10^3/uL (0.0-1.1) Eosinophils # (Auto) 0.1 x10^3/uL (0.0-0.7) Basophils # (Auto) 0.1 x10^3/uL (0.0-0.2) Sodium Level 138 mmol/L (136-145) Potassium Level 3.2 mmol/L (3.5-5.1) Chloride Level 101 mmol/L (98-107) Carbon Dioxide Level 30 mmol/L (21-32) Anion Gap 7 (6-14) Blood Urea Nitrogen 13 mg/dL (7-20) Creatinine 1.4 mg/dL (0.6-1.0) Estimated GFR (Cockcroft-Gault) 48.4 BUN/Creatinine Ratio 9 (6-20) Glucose Level 103 mg/dL (70-99) Calcium Level 9.2 mg/dL (8.5-10.1) Total Bilirubin 0.3 mg/dL (0.2-1.0) Aspartate Amino Transf (AST/SGOT) 15 U/L (15-37) Alanine Aminotransferase (ALT/SGPT) 17 U/L (14-59) Alkaline Phosphatase 119 U/L (46-116) Total Protein 7.8 g/dL (6.4-8.2) Albumin 3.1 g/dL (3.4-5.0) Albumin/Globulin Ratio 0.7 (1.0-1.7) Laboratory Tests Test 04/29/18 18:20 White Blood Count 13.6 x10^3/uL (4.0-11.0) Red Blood Count 4.61 x10^6/uL (3.50-5.40) Hemoglobin 12.2 g/dL (12.0-15.5) Hematocrit 37.6 % (36.0-47.0) Mean Corpuscular Volume 82 fL (79-100) Mean Corpuscular Hemoglobin 26 pg (25-35) Mean Corpuscular Hemoglobin Concent 32 g/dL (31-37) Red Cell Distribution Width 15.5 % (11.5-14.5) Platelet Count 301 x10^3/uL (140-400) Neutrophils (%) (Auto) 60 % (31-73) Lymphocytes (%) (Auto) 31 % (24-48) Monocytes (%) (Auto) 8 % (0-9) Eosinophils (%) (Auto) 0 % (0-3) Basophils (%) (Auto) 1 % (0-3) Neutrophils # (Auto) 8.2 x10^3uL (1.8-7.7) Lymphocytes # (Auto) 4.2 x10^3/uL (1.0-4.8) Monocytes # (Auto) 1.0 x10^3/uL (0.0-1.1) Eosinophils # (Auto) 0.1 x10^3/uL (0.0-0.7) Basophils # (Auto) 0.1 x10^3/uL (0.0-0.2) Sodium Level 138 mmol/L (136-145) Potassium Level 3.2 mmol/L (3.5-5.1) Chloride Level 101 mmol/L (98-107) Carbon Dioxide Level 30 mmol/L (21-32) Anion Gap 7 (6-14) Blood Urea Nitrogen 13 mg/dL (7-20) Creatinine 1.4 mg/dL (0.6-1.0) Estimated GFR (Cockcroft-Gault) 48.4 BUN/Creatinine Ratio 9 (6-20) Glucose Level 103 mg/dL (70-99) Calcium Level 9.2 mg/dL (8.5-10.1) Total Bilirubin 0.3 mg/dL (0.2-1.0) Aspartate Amino Transf (AST/SGOT) 15 U/L (15-37) Alanine Aminotransferase (ALT/SGPT) 17 U/L (14-59) Alkaline Phosphatase 119 U/L (46-116) Total Protein 7.8 g/dL (6.4-8.2) Albumin 3.1 g/dL (3.4-5.0) Albumin/Globulin Ratio 0.7 (1.0-1.7) Assessment/Plan Assessment/Plan LLQ abd pain- most likely secondary to recurrent diverticulitis. Malignancy, IBD , and/or ischemia possible as well. Plan medical therapy with antibiotics/serial CBCs interval CT scan if no improvement possible o/p colonosocpy and/or resection with chronicity of symptoms Full note dictated KELLY ORONA MD Apr 30, 2018 12:23
[2018-04-30] MEDS: ONDANSETRON ODT 4 MG TAB.RAPDIS. PO SCH ×2 (13:53→20:30)
[2018-04-30] MEDS: PANTOPRAZOLE 40 MG TABLET.DR. PO SCH (13:54)
[2018-04-30] MEDS ORDERED: POTASSIUM CHLORIDE 20 MEQ TABLET.ER. PO ONE (14:00)
[2018-04-30 15:00] VITALS: BP 107/68
[2018-04-30] MEDS: HYDROcodone/APAP 5/325MG 1 TAB TABLET PO SCH ×2 (18:18→23:25)
[2018-04-30 19:24] VITALS: BP 189/93
[2018-04-30] MEDS: LACTOBACILLUS RHAMNOSUS GG 1 CAPSULE. PO SCH (20:30)
--- NOTE | 2018-04-30 22:11 | CONS ---
DATE OF CONSULTATION: 04/30/2018 REFERRING PHYSICIAN: Dr. Arias and Dr. Carmona. REASON FOR CONSULTATION: Recurrent left lower quadrant abdominal pain, diverticulitis. HISTORY OF PRESENT ILLNESS: A 48-year-old female with past medical history significant for obesity, cholecystectomy, C-sections x 2 as well as hypertension and diverticulitis in the past, was admitted after failing outpatient antibiotics of ciprofloxacin and Flagyl for 10 days. The patient states the pain began approximately 2 weeks ago. She sought medical attention and was placed on antibiotics appropriately, but has not responded with recurrence of her discomfort. Interval CAT scan late yesterday was unrevealing for extraluminal mass or perforation of the sigmoid colon. The patient's white count presently is 13.6. Pain is fairly constant with poor appetite and weight loss of approximately 5 pounds. There is no family history of inflammatory bowel disease or colon cancer. She has undergone previous colonoscopy with continued symptoms, is appropriately frustrated with the lack of improvement. PAST MEDICAL HISTORY: Hypertension, diverticulitis, status post cholecystectomy, status post C-sections x 2. ALLERGIES: None. MEDICATIONS: Include piperacillin. She also takes lisinopril and amlodipine as an outpatient for blood pressure. SOCIAL HISTORY: She is a smoker. FAMILY HISTORY: Noncontributory for colon cancer or inflammatory bowel disease. REVIEW OF SYSTEMS: HEENT: There is no decrease in her visual acuity issues. CARDIAC: There is history of hypertension. PULMONARY: History of tobaccoism. NEUROLOGIC: No stroke, migraine, neuropathy. PSYCHIATRIC: No mood swings, depression, insomnia. GASTROINTESTINAL: See history of present illness. HEMATOLOGIC: No bleeding, bruising, coagulopathy. Persistent white count elevations are noted. ENDOCRINE: No history of heat or cold intolerance, thyroid disease or diabetes. DERMATOLOGIC: No skin rashes or pruritus. PHYSICAL EXAMINATION: GENERAL: Reveals well-nourished, well-developed female who is alert, cooperative, in mild distress. VITAL SIGNS: Temperature is 97.8, pulse 62, respirations 18, blood pressure is 135/81. HEENT: Normocephalic, atraumatic head. Pupils and extraocular muscles are not tested. Sclerae anicteric. NECK: Supple. LUNGS: Clear. CARDIOVASCULAR: Reveals an S1, S2 without S3, S4 or appreciable murmur. ABDOMEN: Reveals soft abdomen. Hyperactive bowel sounds. Left lower quadrant tenderness to deep palpation with infraumbilical incision. EXTREMITIES: Reveal no cyanosis, clubbing or edema. LABORATORY DATA: Hemoglobin is 12.2, hematocrit 37.6, white count 13.6, platelet count 301,000. Sodium 138, potassium 3.2, chloride 101, bicarbonate 30, BUN 13, creatinine 1.4, glucose 103, calcium 9.2, total bilirubin 0.3, AST of 15, ALT of 17, alkaline phosphatase of 119, total protein 7.8, albumin 3.1. CT scan of the abdomen and pelvis reveals mild inflammation in sigmoid colon, some diverticular changes. No free air, abscess or mass. IMPRESSION: Left lower quadrant abdominal pain with history of diverticular disease, most likely secondary to recurrent diverticulitis, malignancy, fistula, ischemia and/or inflammatory bowel disease are possible. Recommend fluids, antibiotics, serial blood counts, interval CT scan if there is no improvement in her pain to rule out interval development of abscess, stricture or fistula, and to consider outpatient colonoscopy and possible resection with the chronicity of her symptoms. KELLY ORONA MD DR: KUNAL/vickie JOB#: [id number] / [id number] usha Arias Dr.
[2018-04-30 23:56] VITALS: BP 158/74
[2018-05-01] MEDS ORDERED: MORPHINE SULFATE 2 MG/ML VIAL. IV PRN (03:15)
[2018-05-01 03:21] VITALS: BP 122/55
[2018-05-01 05:35] LABS: HEMATOCRIT 34.7 % (36.0-47.0); HEMOGLOBIN 11.3 g/dL (12.0-15.5); RED BLOOD COUNT 4.25 x10^6/uL (3.50-5.40); RED CELL DISTRIBUTION WIDTH 15.4 % (11.5-14.5); WHITE BLOOD COUNT 12.3 x10^3/uL (4.0-11.0)
[2018-05-01] MEDS: PIPERACILLIN/TAZOBACTAM 3.375 GM in IV NORMAL SALINE 50ML 50 ML IV SCH ×3 (05:50→16:55)
[2018-05-01] MEDS: HYDROcodone/APAP 5/325MG 1 TAB TABLET PO SCH ×3 (05:51→15:31)
[2018-05-01] MEDS: ONDANSETRON ODT 4 MG TAB.RAPDIS. PO SCH ×2 (06:00→14:00)
[2018-05-01 06:01] LABS: ALBUMIN 2.7 g/dL (3.4-5.0); ALBUMIN/GLOBULIN RATIO 0.6 (1.0-1.7); CALCIUM 8.4 mg/dL (8.5-10.1); CREATININE 1.3 mg/dL (0.6-1.0); GFR 52.7; POTASSIUM 3.6 mmol/L (3.5-5.1); TOTAL BILIRUBIN 0.3 mg/dL (0.2-1.0); TOTAL PROTEIN 7.2 g/dL (6.4-8.2)
[2018-05-01 07:48] VITALS: BP 128/75
[2018-05-01] MEDS: PANTOPRAZOLE 40 MG TABLET.DR. PO SCH (08:40)
[2018-05-01] MEDS: LACTOBACILLUS RHAMNOSUS GG 1 CAPSULE. PO SCH (08:40)
[2018-05-01 11:30] VITALS: BP 160/92
[2018-05-01] MEDS ORDERED: AMLO5TAB2 PO (11:44)
--- NOTE | 2018-05-01 13:07 | PDOC ---
PROGRESS NOTES Chief Complaint Chief Complaint feels better today need to go home , can not miss work tomorrow new job will follow with pCP pain better, tolerating diet Vitals Vitals Vital Signs Date Time Temp Pulse Resp B/P (MAP) Pulse Ox O2 Delivery O2 Flow Rate FiO2 05/01/18 11:30 98.2 68 18 160/92 (114) 99 Room Air 98.2 Physical Exam General: Alert, Oriented X3, Cooperative Heart: Regular rate Lungs: Clear Abdomen: Soft, Other (minimal tenderness now LLQ) Labs LABS Laboratory Tests Test 05/01/18 04:15 White Blood Count 12.3 x10^3/uL (4.0-11.0) Red Blood Count 4.25 x10^6/uL (3.50-5.40) Hemoglobin 11.3 g/dL (12.0-15.5) Hematocrit 34.7 % (36.0-47.0) Mean Corpuscular Volume 82 fL (79-100) Mean Corpuscular Hemoglobin 27 pg (25-35) Mean Corpuscular Hemoglobin Concent 33 g/dL (31-37) Red Cell Distribution Width 15.4 % (11.5-14.5) Platelet Count 278 x10^3/uL (140-400) Sodium Level 139 mmol/L (136-145) Potassium Level 3.6 mmol/L (3.5-5.1) Chloride Level 103 mmol/L (98-107) Carbon Dioxide Level 29 mmol/L (21-32) Anion Gap 7 (6-14) Blood Urea Nitrogen 11 mg/dL (7-20) Creatinine 1.3 mg/dL (0.6-1.0) Estimated GFR (Cockcroft-Gault) 52.7 BUN/Creatinine Ratio 8 (6-20) Glucose Level 102 mg/dL (70-99) Calcium Level 8.4 mg/dL (8.5-10.1) Total Bilirubin 0.3 mg/dL (0.2-1.0) Aspartate Amino Transf (AST/SGOT) 27 U/L (15-37) Alanine Aminotransferase (ALT/SGPT) 30 U/L (14-59) Alkaline Phosphatase 112 U/L (46-116) Total Protein 7.2 g/dL (6.4-8.2) Albumin 2.7 g/dL (3.4-5.0) Albumin/Globulin Ratio 0.6 (1.0-1.7) Assessment and Plan Assessmemt and Plan Problems Medical Problems: (1) Diverticulitis Status: Acute (2) Failure of outpatient treatment Status: Acute Comment Review of Relevant I have reviewed the following items antonio (where applicable) has been applied. Labs Laboratory Tests Test 04/29/18 18:20 05/01/18 04:15 White Blood Count 13.6 x10^3/uL (4.0-11.0) 12.3 x10^3/uL (4.0-11.0) Red Blood Count 4.61 x10^6/uL (3.50-5.40) 4.25 x10^6/uL (3.50-5.40) Hemoglobin 12.2 g/dL (12.0-15.5) 11.3 g/dL (12.0-15.5) Hematocrit 37.6 % (36.0-47.0) 34.7 % (36.0-47.0) Mean Corpuscular Volume 82 fL (79-100) 82 fL (79-100) Mean Corpuscular Hemoglobin 26 pg (25-35) 27 pg (25-35) Mean Corpuscular Hemoglobin Concent 32 g/dL (31-37) 33 g/dL (31-37) Red Cell Distribution Width 15.5 % (11.5-14.5) 15.4 % (11.5-14.5) Platelet Count 301 x10^3/uL (140-400) 278 x10^3/uL (140-400) Neutrophils (%) (Auto) 60 % (31-73) Lymphocytes (%) (Auto) 31 % (24-48) Monocytes (%) (Auto) 8 % (0-9) Eosinophils (%) (Auto) 0 % (0-3) Basophils (%) (Auto) 1 % (0-3) Neutrophils # (Auto) 8.2 x10^3uL (1.8-7.7) Lymphocytes # (Auto) 4.2 x10^3/uL (1.0-4.8) Monocytes # (Auto) 1.0 x10^3/uL (0.0-1.1) Eosinophils # (Auto) 0.1 x10^3/uL (0.0-0.7) Basophils # (Auto) 0.1 x10^3/uL (0.0-0.2) Sodium Level 138 mmol/L (136-145) 139 mmol/L (136-145) Potassium Level 3.2 mmol/L (3.5-5.1) 3.6 mmol/L (3.5-5.1) Chloride Level 101 mmol/L (98-107) 103 mmol/L (98-107) Carbon Dioxide Level 30 mmol/L (21-32) 29 mmol/L (21-32) Anion Gap 7 (6-14) 7 (6-14) Blood Urea Nitrogen 13 mg/dL (7-20) 11 mg/dL (7-20) Creatinine 1.4 mg/dL (0.6-1.0) 1.3 mg/dL (0.6-1.0) Estimated GFR (Cockcroft-Gault) 48.4 52.7 BUN/Creatinine Ratio 9 (6-20) 8 (6-20) Glucose Level 103 mg/dL (70-99) 102 mg/dL (70-99) Calcium Level 9.2 mg/dL (8.5-10.1) 8.4 mg/dL (8.5-10.1) Total Bilirubin 0.3 mg/dL (0.2-1.0) 0.3 mg/dL (0.2-1.0) Aspartate Amino Transf (AST/SGOT) 15 U/L (15-37) 27 U/L (15-37) Alanine Aminotransferase (ALT/SGPT) 17 U/L (14-59) 30 U/L (14-59) Alkaline Phosphatase 119 U/L (46-116) 112 U/L (46-116) Total Protein 7.8 g/dL (6.4-8.2) 7.2 g/dL (6.4-8.2) Albumin 3.1 g/dL (3.4-5.0) 2.7 g/dL (3.4-5.0) Albumin/Globulin Ratio 0.7 (1.0-1.7) 0.6 (1.0-1.7) Laboratory Tests Test 05/01/18 04:15 White Blood Count 12.3 x10^3/uL (4.0-11.0) Red Blood Count 4.25 x10^6/uL (3.50-5.40) Hemoglobin 11.3 g/dL (12.0-15.5) Hematocrit 34.7 % (36.0-47.0) Mean Corpuscular Volume 82 fL (79-100) Mean Corpuscular Hemoglobin 27 pg (25-35) Mean Corpuscular Hemoglobin Concent 33 g/dL (31-37) Red Cell Distribution Width 15.4 % (11.5-14.5) Platelet Count 278 x10^3/uL (140-400) Sodium Level 139 mmol/L (136-145) Potassium Level 3.6 mmol/L (3.5-5.1) Chloride Level 103 mmol/L (98-107) Carbon Dioxide Level 29 mmol/L (21-32) Anion Gap 7 (6-14) Blood Urea Nitrogen 11 mg/dL (7-20) Creatinine 1.3 mg/dL (0.6-1.0) Estimated GFR (Cockcroft-Gault) 52.7 BUN/Creatinine Ratio 8 (6-20) Glucose Level 102 mg/dL (70-99) Calcium Level 8.4 mg/dL (8.5-10.1) Total Bilirubin 0.3 mg/dL (0.2-1.0) Aspartate Amino Transf (AST/SGOT) 27 U/L (15-37) Alanine Aminotransferase (ALT/SGPT) 30 U/L (14-59) Alkaline Phosphatase 112 U/L (46-116) Total Protein 7.2 g/dL (6.4-8.2) Albumin 2.7 g/dL (3.4-5.0) Albumin/Globulin Ratio 0.6 (1.0-1.7) Medications Current Medications Fentanyl Citrate (Fentanyl 2ml Vial) 50 mcg 1X ONCE IV Last administered on at 18:05; Start 04/29/18 at 18:00; Stop 04/29/18 at 18:01; Status DC Sodium Chloride 1,000 ml @ 1,000 mls/hr 1X ONCE IV Last administered on at 18:05; Start 04/29/18 at 18:00; Stop 04/29/18 at 18:59; Status DC Ondansetron HCl (Zofran) 4 mg 1X ONCE IV Last administered on 04/29/18at 18:05 ; Start 04/29/18 at 18:00; Stop 04/29/18 at 18:01; Status DC Iohexol (Omnipaque 300 Mg/ml) 75 ml 1X ONCE IV Last administered on 04/29/18at 19:50; Start 04/29/18 at 18:00; Stop 04/29/18 at 18:01; Status DC Info (CONTRAST GIVEN -- Rx MONITORING) 1 each PRN DAILY PRN MC SEE COMMENTS; Start 04/29/18 at 17:45; Stop 05/01/18 at 17:44 Morphine Sulfate (Morphine Sulfate) 4 mg 1X ONCE IV Last administered on at 20:39; Start 04/29/18 at 20:30; Stop 04/29/18 at 20:31; Status DC Ondansetron HCl (Zofran) 4 mg PRN Q8HRS PRN IV NAUSEA/VOMITING; Start 04/29/18 at 21:15; Stop 04/30/18 at 21:14; Status DC Morphine Sulfate (Morphine Sulfate) 2 mg PRN Q2HR PRN IV PAIN Last administered on 04/30/18at 20:31; Start 04/29/18 at 21:15; Stop 04/30/18 at 21:14 ; Status DC Piperacillin Sod/ Tazobactam Sod (Zosyn Per Pharmacy) 1 each QID PRN MC SEE COMMENTS; Start 04/29/18 at 21:15 Piperacillin Sod/ Tazobactam Sod 3.375 gm/Sodium Chloride 50 ml @ 100 mls/hr Q6HRS IV Last administered on 05/01/18at 11:40; Start 04/29/18 at 22:00 Potassium Chloride (Klor-Con) 40 meq 1X ONCE PO Last administered on at 13:54; Start 04/30/18 at 14:00; Stop 04/30/18 at 14:01; Status DC Pantoprazole Sodium (Protonix) 40 mg DAILYAC PO Last administered on 05/01/18at 08:40; Start 04/30/18 at 14:00 Acetaminophen/ Hydrocodone Bitart (Lortab 5/325) 1 tab Q6HRS PO Last administered on 05/01/18at 11:40; Start 04/30/18 at 18:00 Ondansetron HCl (Zofran Odt) 4 mg Q8HRS PO Last administered on 05/01/18at 06:00 ; Start 04/30/18 at 14:00 Lactobacillus Rhamnosus (Culturelle) 1 cap BID PO Last administered on at 08:40; Start 04/30/18 at 21:00 Morphine Sulfate (Morphine Sulfate) 2 mg PRN Q2HR PRN IV SEVERE PAIN Last administered on 05/01/18at 03:27; Start 05/01/18 at 03:15 Active Scripts Active Zofran Odt (Ondansetron) 4 Mg Tab.rapdis 1 Tab SL Q8HRS Belen 5-325 Tablet (Acetaminophen/Hydrocodone Bitart) 1 Each Tablet 1 Tab PO Q6HRS Flagyl (Metronidazole) 500 Mg Tablet 500 Mg PO TID Cipro (Ciprofloxacin Hcl) 500 Mg Tablet 1 Tab PO BID Reported Amlodipine Besylate 5 Mg Tablet 5 Mg PO DAILY Zofran (Ondansetron Hcl) 4 Mg Tablet 1 Tab PO Q8HRS Lisinopril-Hctz 10-12.5 Mg Tab (Lisinopril/Hydrochlorothiazide) 1 Each Tablet 1 Tab PO DAILY Vitals/I & O Vital Sign - Last 24 Hours 04/30/18 04/30/18 04/30/18 04/30/18 15:00 19:24 20:00 20:31 Temp 97.6 98.4 97.6 98.4 Pulse 64 70 Resp 22 18 17 B/P (MAP) 107/68 (81) 189/93 (125) Pulse Ox 100 100 O2 Delivery Room Air Room Air Room Air Room Air 04/30/18 04/30/18 05/01/18 05/01/18 23:25 23:56 00:30 03:21 Temp 98.1 97.7 98.1 97.7 Pulse 76 61 Resp 17 18 17 18 B/P (MAP) 158/74 (102) 122/55 (77) Pulse Ox 99 99 O2 Delivery Room Air Room Air Room Air Room Air 05/01/18 05/01/18 05/01/18 05/01/18 03:27 04:00 05:51 07:48 Temp 97.7 97.7 Pulse 58 Resp 17 17 17 16 B/P (MAP) 128/75 (92) Pulse Ox 93 O2 Delivery Room Air Room Air Room Air Room Air 05/01/18 05/01/18 08:00 11:30 Temp 98.2 98.2 Pulse 68 Resp 18 B/P (MAP) 160/92 (114) Pulse Ox 99 O2 Delivery Room Air Room Air Intake and Output 04/30/18 04/30/18 05/01/18 15:01 23:01 07:01 Intake Total 500 ml 450 ml Balance 500 ml 450 ml ALLY BURDICK MD May 01, 2018 13:07
[2018-05-01] MEDS ORDERED: LACT1CAP19 PO (14:18)
[2018-05-01] MEDS ORDERED: AMOX1TAB61 PO (14:18)
[2018-05-01] MEDS ORDERED: Pantoprazole PO (14:18)
[2018-05-01] MEDS ORDERED: HYDR-971 PO (14:18)
--- NOTE | 2018-05-01 14:24 | PDOC3 ---
*Discharge Summary* Date of Admission: Apr 29, 2018 Date of Discharge: May 01, 2018 Admitting Diagnosis Problems Medical Problems: (1) Diverticulitis Status: Acute (2) Failure of outpatient treatment Status: Acute Final Diagnosis 1-Diverticulitis failed out pt treatment with cipro and flagyl 2-GERD 3-HTN 4-anxiety Problems Medical Problems: (1) Diverticulitis Status: Acute (2) Failure of outpatient treatment Status: Acute CONSULTS GI Procedures CT abd and pelvis Brief Hospital Course Ms. Manning is a 48 old [sex] who presented with [ ] Disposition/Orders: D/C to Home CONDITION AT DISCHARGE: Improved Diet: Soft Home Meds Active Scripts Amoxicillin/Potassium Clav (AUGMENTIN 875-125 TABLET) 1 Each Tablet, 1 TAB PO BID, #20 TAB Prov:ALLY BURDICK MD 05/01/18 Lactobacillus Rhamnosus Gg (CULTURELLE) 1 Each Cap.sprink, 1 CAP PO BID for 30 Days, #60 CAP Prov:ALLY BURDICK MD 05/01/18 [Pantoprazole] 40 MG TABLET.DR Caba Conflict Check, 40 MG PO DAILYAC for 30 Days, #30 Prov:ALLY BURDICK MD 05/01/18 Hydrocodone/Apap 5-325 (NORCO 5-325 TABLET) 1 Each Tablet, 1 TAB PO Q12H, #12 TAB Prov:ALLY BURDICK MD 05/01/18 Ondansetron (ZOFRAN ODT) 4 Mg Tab.rapdis, 1 TAB SL Q8HRS, #15 TAB Prov:MICHAEL DOMINGO APRN 04/18/18 Reported Medications Amlodipine Besylate (AMLODIPINE BESYLATE) 5 Mg Tablet, 5 MG PO DAILY, TAB 05/01/18 Discontinued Reported Medications Ondansetron Hcl (ZOFRAN) 4 Mg Tablet, 1 TAB PO Q8HRS, TAB 04/30/18 Lisinopril/Hydrochlorothiazide (LISINOPRIL-HCTZ 10-12.5 MG TAB) 1 Each Tablet, 1 TAB PO DAILY, TAB 04/30/18 Discontinued Scripts Metronidazole (FLAGYL) 500 Mg Tablet, 500 MG PO TID, #30 TAB Prov:MICHAEL DOMINGO APRN 04/18/18 Ciprofloxacin Hcl (CIPRO) 500 Mg Tablet, 1 TAB PO BID, #20 TAB Prov:MICHAEL DOMINGO APRN 04/18/18 Scheduled Amlodipine Besylate (Amlodipine Besylate), 5 MG PO DAILY, (Reported) Amoxicillin/Potassium Clav (Augmentin 875-125 Tablet), 1 TAB PO BID Hydrocodone/Apap 5-325 ([place] 5-325 Tablet), 1 TAB PO Q12H Lactobacillus Rhamnosus Gg (Culturelle), 1 CAP PO BID Ondansetron (Zofran Odt), 1 TAB SL Q8HRS [Pantoprazole], 40 MG PO DAILYAC Discontinued Medications Ciprofloxacin Hcl (Cipro), 1 TAB PO BID Lisinopril/Hydrochlorothiazide (Lisinopril-Hctz 10-12.5 Mg Tab), 1 TAB PO DAILY, (Reported) Metronidazole (Flagyl), 500 MG PO TID Ondansetron Hcl (Zofran), 1 TAB PO Q8HRS, (Reported) Scripts Amoxicillin/Potassium Clav (AUGMENTIN 875-125 TABLET) 1 Each Tablet 1 TAB PO BID, #20 TAB Prov: ALLY BURDICK MD 05/01/18 Lactobacillus Rhamnosus Gg (CULTURELLE) 1 Each Cap.sprink 1 CAP PO BID for 30 Days, #60 CAP Prov: ALLY BURDICK MD 05/01/18 [Pantoprazole] 40 MG TABLET.DR Caba Conflict Check 40 MG PO DAILYAC for 30 Days, #30 Prov: ALLY BURDICK MD 05/01/18 Hydrocodone/Apap 5-325 (NORCO 5-325 TABLET) 1 Each Tablet 1 TAB PO Q12H, #12 TAB Prov: ALLY BURDICK MD 05/01/18 FOLLOW UP APPOINTMENT: pcp 1-2 weeks. f/u Dr. Leone out pt for colonoscopy Time Spent Total time spent with patient [45] minutes for coordination of care, counseling , and education. ALLY BURDICK MD May 01, 2018 14:24
[2018-05-01 14:45] VITALS: BP 120/76
== END 2018-05-01 18:31 | disposition home or self-care (01) | DRG 392 ==
LOC: ER 17:19 → 6 SOUTH 21:00
PROVIDERS: ADMIT Internal Medicine; ATTEND Internal Medicine
DX: K57.32 Diverticulitis of large intestine without perforation or abscess without bleeding (principal); Z68.41 Body mass index [BMI] 40.0-44.9, adult; K21.9 Gastro-esophageal reflux disease without esophagitis; M19.90 Unspecified osteoarthritis, unspecified site; E66.9 Obesity, unspecified; I10 Essential (primary) hypertension; F41.9 Anxiety disorder, unspecified; F17.200 Nicotine dependence, unspecified, uncomplicated; Z90.49 Acquired absence of other specified parts of digestive tract; Z98.891 History of uterine scar from previous surgery; Z82.49 Family history of ischemic heart disease and other diseases of the circulatory system; Z71.89 Other specified counseling
CPT/HCPCS: 36415; 74177; 80053; 85025; 85027; 96361; 96374; J2270; J2405; J2543; J3010; J7030; Q0162; Q9967; 99285-25